=== PATIENT | female | born 1970 | race Caucasian/White ===

== ENCOUNTER 2022-04-18 08:57 | Outpatient (CLI) | payer BC | END 2022-04-18 08:58 | disposition home or self-care (01) | LOC: CSHMAMMO 08:57 | PROVIDERS: ATTEND Obstetrics & Gynecology | DX: Z12.31 Encounter for screening mammogram for malignant neoplasm of breast (principal); Z85.6 Personal history of leukemia | CPT/HCPCS: 77063; 77067 ==

== ENCOUNTER 2025-08-09 08:08 | Outpatient (CLI) | payer BC | END 2025-08-09 08:09 | disposition home or self-care (01) | LOC: CSHMAMMO 08:08 | PROVIDERS: ATTEND Obstetrics & Gynecology | DX: Z12.31 Encounter for screening mammogram for malignant neoplasm of breast (principal); Z85.6 Personal history of leukemia | CPT/HCPCS: 77063; 77067 ==